=== PATIENT | female | born 1980 | race Caucasian/White ===

== ENCOUNTER 2017-01-19 09:47 | Emergency (ER) | payer OTHER ==
[2017-01-19] MEDS ORDERED: methylPREDNISolone Sodium Succinate 125 MG/2 ML SDV IM ONE (11:58)
--- NOTE | 2017-01-19 12:03 | EDM.PDOC ---
[id number] Complaint: FLU CHILLS Time Seen by Provider: 01/19/17 10:20 Source of Information: Reports: Patient History Limitations: Reports: No limitations - History of Present Illness INITIAL COMMENTS - FREE TEXT/NARRATIVE: 36-year-old female who has had an ongoing respiratory infection for the last week now worsened by nausea and vomiting and diarrhea over the past 12 hours. It started 7 days ago with a sore throat, she lost her voice and developed a cough. She feels tired, achy, and has a headache. Overnight she had persistent diarrhea and vomited several times and feels awful. Severity: moderate Associated Symptoms: Reports: cough, loss of appetite, malaise, nausea/vomiting , shortness of breath, weakness. Denies: fever/chills Generalized Pain Score (Numeric/FACES): 7 - Related Data Allergies Allergy/AdvReac Type Severity Reaction Status Date / Time No Known Allergies Allergy Verified 01/19/17 10:14 Home Meds: Home Meds Omeprazole [Prilosec] 20 mg PO DAILY 01/31/15 [History] Venlafaxine [Venlafaxine ER] 375 mg PO DAILY 01/31/15 [History] Naproxen Sodium [Aleve] 220 mg PO ASDIRECTED 12/01/15 [History] *Levothyroxine 08/04/16 [History] Past Medical History Gastrointestinal History: Reports: GERD Musculoskeletal History: Reports: Back pain, chronic, Fracture Psychiatric History: Reports: Depression, PTSD Endocrine/Metabolic History: Reports: Hypothyroidism - Infectious Disease History Infectious Disease History: Reports: C-difficile - Past Surgical History Female Surgical History: Reports: section, Hysterectomy, Tubal ligation Social & Family History - Family History Family Medical History: Noncontributory - Tobacco Use Smoking Status *Q: Former Smoker Years of Tobacco use: 15 Packs/Tins Daily: 1 Used Tobacco, but Quit: No Month Tobacco Last Used: january Second Hand Smoke Exposure: Yes - Caffeine Use Caffeine Use: Reports: Coffee Other Caffeine Use: 2 cups a day - Alcohol Use Days Per Week of Alcohol Use: 0 - Recreational Drug Use Recreational Drug Use: No ED ROS GENERAL - Review of Systems Review Of Systems: See Below Constitutional: Reports: malaise, weakness. Denies: fever HEENT: Reports: Throat pain Respiratory: Reports: Cough. Denies: Sputum Cardiovascular: Denies: Chest pain GI/Abdominal: Reports: Diarrhea, Nausea, Vomiting. Denies: Abdominal pain Musculoskeletal: Reports: muscle pain (Diffuse achiness) Skin: Denies: rash ED EXAM, GENERAL - Physical Exam Exam: See Below Exam Limited By: No limitations General Appearance: alert, no apparent distress Eye Exam: bilateral eye: EOMI (Well-hydrated) Throat/Mouth: Normal inspection Neck: No: lymphadenopathy (R), lymphadenopathy (L) Respiratory/Chest: no respiratory distress, lungs clear Cardiovascular: regular rate, rhythm Neurological: alert, oriented Psychiatric: normal affect, normal mood Skin Exam: Warm, Dry Course - Vital Signs Last Recorded V/S: Last Vital Signs Temp 98.6 F 01/19/17 12:15 Pulse 94 01/19/17 12:15 Resp 20 01/19/17 12:15 BP 148/102 H 01/19/17 12:15 Pulse Ox 97 01/19/17 12:15 - Orders/Labs/Meds Orders: Active Orders 24 hr Category Date Time Status CULTURE STREP A CONFIRMATION [RM] Routine Lab 01/19/17 10:50 Results STREP SCRN A RAPID W CULT CONF [RM] Routine Lab 01/19/17 10:50 Results Labs: Laboratory Tests 01/19/17 01/19/17 Range/Units 11:00 11:00 WBC 5.7 (4.5-11.0) K/uL RBC 4.77 (3.30-5.50) M/uL Hgb 14.3 D (12.0-15.0) g/dL Hct 42.1 (36.0-48.0) % MCV 88 (80-98) fL MCH 30 (27-31) pg MCHC 34 (32-36) % Plt Count 249 (150-400) K/uL Neut % (Auto) 68 H (36-66) % Lymph % (Auto) 17 L (24-44) % [place] % (Auto) 13 H (2-6) % Eos % (Auto) 1 L (2-4) % Baso % (Auto) 1 (0-1) % Sodium 142 (140-148) mmol/L Potassium 3.4 L (3.6-5.2) mmol/L Chloride 104 (100-108) mmol/L Carbon Dioxide 26 (21-32) mmol/L Anion Gap 15.4 H (5.0-14.0) mmol/L BUN 8 (7-18) mg/dL Creatinine 0.7 (0.6-1.0) mg/dL Est Cr Clr Drug Dosing 116.11 mL/min Estimated GFR (MDRD) > 60 (>60) Glucose 95 (74-106) mg/dL Calcium 8.6 (8.5-10.1) mg/dL Meds: Medications Discontinued Medications Generic Name Dose Route Start Last Admin Trade Name Bassem PRN Reason Stop Dose Admin Methylprednisolone Sodium Succinate 125 mg 01/19/17 11:58 01/19/17 12:08 Solu-Medrol IM 01/19/17 11:59 125 mg ONETIME ONE Administration - Re-Assessments/Exams Free Text/Narrative Re-Assessment/Exam: 01/19/17 12:01 Rapid strep, influenza antigens, CBC and CMP were obtained. Rapid strep and influenza were negative. CBC was normal. CMP was reassuring. While explaining the labs to the patient she had a persistent cough so was given 125 mg of Solu-Medrol IM to hopefully reduce the inflammatory response to the virus. I'm going to advise her to rest for the next 2 days, will give her some Zofran to use for nausea and Tessalon Perles for cough suppression. She can increase activity as tolerated. Departure - Departure Time of Disposition: 12:17 Disposition: Home, Self-Care 01 Condition: good Clinical Impression: Acute bronchitis, viral Nausea and vomiting Qualifiers: Vomiting type: unspecified Vomiting Intractability: non-intractable Qualified Code(s): R11.2 - Nausea with vomiting, unspecified Instructions: Acute Bronchitis, [id number], Nausea and Vomiting, Adult Referrals: Salma Gutierrez MD [Primary Care Provider] - Forms: ED Department Discharge Care Plan Goals: Rest, fluids, and use medications for nausea and cough as directed. Consider rechecking in 2-3 days if not improving satisfactorily, or return anytime sooner if worsening such as difficulty breathing. - My Orders Last 24 Hours: My Active Orders 01/19/17 10:50 CULTURE STREP A CONFIRMATION [RM] Routine STREP SCRN A RAPID W CULT CONF [RM] Routine - Assessment/Plan Last 24 Hours: My Active Orders 01/19/17 10:50 CULTURE STREP A CONFIRMATION [RM] Routine STREP SCRN A RAPID W CULT CONF [RM] Routine
[2017-01-19 12:16] VITALS: BP 148/102
== END 2017-01-19 12:17 | disposition home or self-care (01) ==
LOC: JP.ED 09:47
DX: J20.8 Acute bronchitis due to other specified organisms (principal); B97.89 Other viral agents as the cause of diseases classified elsewhere; R11.2 Nausea with vomiting, unspecified; F32.9 Major depressive disorder, single episode, unspecified; E03.9 Hypothyroidism, unspecified; K21.9 Gastro-esophageal reflux disease without esophagitis; Z90.710 Acquired absence of both cervix and uterus; Z98.51 Tubal ligation status; Z79.899 Other long term (current) drug therapy
CPT/HCPCS: 36415; 80048; 85025; 87081; 87430; 87804; 96372; 99285; J2930; 99283

== ENCOUNTER 2017-04-29 08:38 | Emergency (ER) | payer OTHER ==
[2017-04-29 08:51] VITALS: BP 155/116
[2017-04-29] MEDS ORDERED: Ketorolac 60 MG/2 ML SDV IM ONE (09:16)
--- NOTE | 2017-04-29 09:22 | EDM.PDOC ---
ED HPI GENERAL MEDICAL PROBLEM - General Chief Complaint: Back Pain or Injury Stated Complaint: LOW BACK PAIN Time Seen by Provider: 04/29/17 09:10 Source of Information: Reports: Patient, RN Notes Reviewed History Limitations: Reports: No Limitations - History of Present Illness INITIAL COMMENTS - FREE TEXT/NARRATIVE: 36-year-old female presents emergency department day complaint of low back pain , she has a history of chronic back pain she states probably related to her work use were she does do a lot of bending and twisting lifting. 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: Musculoskeletal History: Reports: Back Pain, Chronic, Fracture Psychiatric History: Reports: Depression, PTSD Endocrine/Metabolic History: Reports: Hypothyroidism - Infectious Disease History Infectious Disease History: Reports: Chicken Pox - Past Surgical History Female Surgical History: Reports: Section, Hysterectomy, Tubal Ligation Social & Family History - Family History Family Medical History: Noncontributory - Tobacco Use Smoking Status *Q: Current Every Day Smoker Years of Tobacco use: 15 Packs/Tins Daily: 0.5 Used Tobacco, but Quit: No Month Tobacco Last Used: january Second Hand Smoke Exposure: Yes - Caffeine Use Caffeine Use: Reports: Coffee, Tea Other Caffeine Use: 2 cups a day - Alcohol Use Days Per Week of Alcohol Use: 0 - Recreational Drug Use Recreational Drug Use: No ED ROS GENERAL - Review of Systems Review Of Systems: See Below Constitutional: Reports: No Symptoms Respiratory: Reports: No Symptoms Cardiovascular: Reports: No Symptoms GI/Abdominal: Reports: No Symptoms : Reports: No Symptoms Musculoskeletal: Reports: Back Pain Neurological: Reports: Paresthesia ED EXAM,LOWER BACK PAIN/INJURY - Physical Exam Exam: See Below Exam Limited By: No Limitations General Appearance: Alert, WD/WN, No Apparent Distress Respiratory/Chest: No Respiratory Distress Back Exam: Normal Inspection, Decreased Range of Motion, Muscle Spasm, Paraspinal Tenderness. No: CVA Tenderness (R), CVA Tenderness (L), Vertebral Tenderness DTR - Lower Extremities: 2+: Knee (R), Knee (L) Course - Vital Signs Last Recorded V/S: Last Vital Signs Temp 210.2 F H 04/29/17 08:49 Pulse 92 04/29/17 08:49 Resp 15 04/29/17 08:49 BP 155/116 H 04/29/17 08:49 Pulse Ox 99 04/29/17 08:49 - Orders/Labs/Meds Orders: Active Orders 24 hr Category Date Time Status Ketorolac [Toradol] Med 04/29/17 09:16 Once 60 mg IM ONETIME ONE Medication Orders Ketorolac Tromethamine (Toradol) 60 mg IM ONETIME ONE Stop: 04/29/17 09:17 Meds: Medications Generic Name Dose Route Start Last Admin Trade Name Bassem PRN Reason Stop Dose Admin Ketorolac Tromethamine 60 mg 04/29/17 09:16 Toradol IM 04/29/17 09:17 ONETIME ONE Departure - Departure Time of Disposition: 09:22 Disposition: Home, Self-Care 01 Condition: Good Clinical Impression: Chronic back pain Qualifiers: Back pain location: low back pain Back pain laterality: right Sciatica presence : without sciatica Qualified Code(s): M54.5 - Low back pain; G89.29 - Other chronic pain - Discharge Information Forms: ED Department Discharge Additional Instructions: Continue to use your prescribed medications, use a hydrocodone for breakthrough pain, use the Robaxin as needed for muscle relaxants, please keep your follow- up appointment with your primary care provider in 2 weeks - My Orders Last 24 Hours: My Active Orders 04/29/17 09:16 Ketorolac [Toradol] 60 mg IM ONETIME ONE - Assessment/Plan Last 24 Hours: My Active Orders 04/29/17 09:16 Ketorolac [Toradol] 60 mg IM ONETIME ONE Plan: Assessment Acuity = acute on chronic Site and laterality = exacerbation low back pain Etiology = secondary to lifting injury Manifestations = none Location of injury = Home Lab values = none Plan She was given a Toradol injection well he may be did provide some relief prescription written for 10 hydrocodone in combination with 20 Robaxin she does have follow-up with appointment with her primary care provider in 2 weeks to try alternative methods for her back pain Patient was in agreement with the plan all questions were answered, they were instructed to return to the emergency department or call for worsening symptoms. This note was dictated using [employer] voice recognition software please call with any questions.
== END 2017-04-29 09:37 | disposition home or self-care (01) ==
LOC: JP.ED 08:38
DX: G89.29 Other chronic pain (principal); M54.5 Low back pain; F43.10 Post-traumatic stress disorder, unspecified; F17.210 Nicotine dependence, cigarettes, uncomplicated; Z98.51 Tubal ligation status; Z90.710 Acquired absence of both cervix and uterus; Z79.899 Other long term (current) drug therapy
CPT/HCPCS: 96372; 99283; J1885

== ENCOUNTER 2017-08-04 07:44 | Emergency (ER) | payer OTHER ==
[2017-08-04 07:56] VITALS: BP 165/118
--- NOTE | 2017-08-04 08:09 | EDM.PDOC ---
ED HPI GENERAL MEDICAL PROBLEM - General Chief Complaint: Respiratory Problem Stated Complaint: COLD/CAN'T BREATH WELL Time Seen by Provider: 08/04/17 08:08 Source of Information: Reports: Patient History Limitations: Reports: No Limitations - History of Present Illness INITIAL COMMENTS - FREE TEXT/NARRATIVE: pt arrived with a 2 week history of marked coughing sore throat and sob. Onset: Gradual, Other ( started 2 weeks ago. 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: Musculoskeletal History: Reports: Back Pain, Chronic, Fracture Psychiatric History: Reports: Depression, PTSD Endocrine/Metabolic History: Reports: Hypothyroidism - Infectious Disease History Infectious Disease History: Reports: Chicken Pox - Past Surgical History Female Surgical History: Reports: Section, Hysterectomy, Tubal Ligation Social & Family History - Family History Family Medical History: Noncontributory - Tobacco Use Smoking Status *Q: Heavy Tobacco Smoker Years of Tobacco use: 10 Packs/Tins Daily: 0.5 Used Tobacco, but Quit: No Month Tobacco Last Used: january Second Hand Smoke Exposure: Yes - Caffeine Use Caffeine Use: Reports: Coffee Other Caffeine Use: 2 cups a day - Alcohol Use Days Per Week of Alcohol Use: 0 - Recreational Drug Use Recreational Drug Use: No ED ROS GENERAL - Review of Systems Review Of Systems: See Below Constitutional: Reports: Weakness, Decreased Appetite HEENT: Reports: Throat Pain Respiratory: Reports: Shortness of Breath, Wheezing, Cough Cardiovascular: Reports: No Symptoms Endocrine: Reports: No Symptoms GI/Abdominal: Reports: No Symptoms : Reports: No Symptoms Musculoskeletal: Reports: No Symptoms Skin: Reports: No Symptoms ED EXAM, GENERAL - Physical Exam Exam: See Below Free Text/Narrative:: pt arrived with a cough and wheezing . She has been ill for 2 weeks. She has not been running a high temp. Exam Limited By: No Limitations General Appearance: Alert, Anxious, Mild Distress Ears: Normal TMs Nose: Normal Inspection Throat/Mouth: Other ( mild redness with very little exudate. ) Head: Atraumatic Neck: Lymphadenopathy (R), Lymphadenopathy (L) Respiratory/Chest: Decreased Breath Sounds, Wheezing Cardiovascular: Regular Rate, Rhythm GI/Abdominal: Soft (Female) Exam: Deferred Rectal (Female) Exam: Deferred Extremities: Normal Inspection Neurological: Alert, Oriented, Normal Cognition Course - Vital Signs Last Recorded V/S: Last Vital Signs Temp 36.2 C 08/04/17 07:56 Pulse 90 08/04/17 07:56 Resp 18 08/04/17 07:56 BP 165/118 H 08/04/17 07:56 Pulse Ox 97 08/04/17 07:56 - Orders/Labs/Meds Orders: Active Orders 24 hr Category Date Time Status RT Aerosol Therapy [RC] ASDIRECTED Care 08/04/17 08:10 Active Chest 2V [CR] Stat Exams 08/04/17 08:07 Taken CULTURE STREP A CONFIRMATION [] Stat Lab 08/04/17 08:06 Results STREP SCRN A RAPID W CULT CONF [RM] Stat Lab 08/04/17 08:06 Results Labs: Laboratory Tests 08/04/17 Range/Units 08:06 WBC 11.4 H (4.5-11.0) K/uL RBC 5.05 (3.30-5.50) M/uL Hgb 15.8 H (12.0-15.0) g/dL Hct 46.0 (36.0-48.0) % MCV 91 (80-98) fL MCH 31 (27-31) pg MCHC 34 (32-36) % Plt Count 313 (150-400) K/uL Neut % (Auto) 83 H (36-66) % Lymph % (Auto) 11 L (24-44) % [place] % (Auto) 5 (2-6) % Eos % (Auto) 1 L (2-4) % Baso % (Auto) 0 (0-1) % Meds: Medications Discontinued Medications Generic Name Dose Route Start Last Admin Trade Name Freq PRN Reason Stop Dose Admin Albuterol 2.5 mg 08/04/17 08:10 08/04/17 08:24 Proventil Neb Soln NEB 08/04/17 08:11 2.5 mg ONETIME ONE Administration - Re-Assessments/Exams Free Text/Narrative Re-Assessment/Exam: 08/04/17 08:48 strept was neg, chest did not reveal a pneumonia, wbc is mildly elevated at 11, 400. Departure - Departure Time of Disposition: 08:48 Disposition: Home, Self-Care 01 Condition: Fair Clinical Impression: Bronchitis - Discharge Information Referrals: Salma Gutierrez MD [Primary Care Provider] - Forms: ED Department Discharge Care Plan Goals: push fluids, cool mist humidifir at the bedside, zithromax 250 2 tabs now and 1 tab daily for 6 days, albuterol inhaler 2 puffs tid, robitussin ac 2 tsp q6h prn for cough. - My Orders Last 24 Hours: My Active Orders 08/04/17 08:06 CULTURE STREP A CONFIRMATION [RM] Stat STREP SCRN A RAPID W CULT CONF [RM] Stat 08/04/17 08:07 Chest 2V [CR] Stat 08/04/17 08:10 RT Aerosol Therapy [RC] ASDIRECTED - Assessment/Plan Last 24 Hours: My Active Orders 08/04/17 08:06 CULTURE STREP A CONFIRMATION [RM] Stat STREP SCRN A RAPID W CULT CONF [RM] Stat 08/04/17 08:07 Chest 2V [CR] Stat 08/04/17 08:10 RT Aerosol Therapy [RC] ASDIRECTED
[2017-08-04] MEDS ORDERED: Albuterol 0.083% 2.5 MG/3 ML Neb Soln NEB ONE (08:10)
--- NOTE | 2017-08-04 09:03 | CR ---
Chest 2V FINDINGS: The heart and vascular structures are normal in appearance. No infiltrates or effusions are demonstrated. The skeletal structures are unremarkable. IMPRESSION: Negative exam.
== END 2017-08-04 08:58 | disposition home or self-care (01) ==
LOC: JP.ED 07:44
DX: J40 Bronchitis, not specified as acute or chronic (principal); F17.210 Nicotine dependence, cigarettes, uncomplicated; K21.9 Gastro-esophageal reflux disease without esophagitis; F32.9 Major depressive disorder, single episode, unspecified; E03.9 Hypothyroidism, unspecified; Z79.899 Other long term (current) drug therapy
CPT/HCPCS: 36415; 71020; 71020-26; 85025; 87081; 87430; 94640; 99283; 99285-25

== ENCOUNTER 2018-05-27 10:53 | Emergency (ER) | payer OTHER ==
[2018-05-27 11:12] VITALS: BP 182/106
--- NOTE | 2018-05-27 11:37 | EDM.PDOCBH ---
ED HPI GENERAL MEDICAL PROBLEM - General Chief Complaint: Behavioral/Psych Stated Complaint: DEPRESSION Time Seen by Provider: 05/27/18 11:33 Source of Information: Reports: Patient History Limitations: Reports: No Limitations - History of Present Illness INITIAL COMMENTS - FREE TEXT/NARRATIVE: Pt has been on effexor for the past 6 years. [facility] for [facility] has had trouble filling it this time. This has been a effective medication for her. 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: Musculoskeletal History: Reports: Back Pain, Chronic, Fracture Psychiatric History: Reports: Depression, PTSD Endocrine/Metabolic History: Reports: Hypothyroidism - Infectious Disease History Infectious Disease History: Reports: Chicken Pox - Past Surgical History Female Surgical History: Reports: Section, Hysterectomy, Tubal Ligation Social & Family History - Family History Family Medical History: Noncontributory - Tobacco Use Smoking Status *Q: Current Every Day Smoker Years of Tobacco use: 15 Packs/Tins Daily: 1 - Caffeine Use Caffeine Use: Reports: Coffee Other Caffeine Use: 2 cups a day - Recreational Drug Use Recreational Drug Use: No ED ROS GENERAL - Review of Systems Review Of Systems: See Below Constitutional: Reports: No Symptoms HEENT: Reports: No Symptoms Respiratory: Reports: No Symptoms Cardiovascular: Reports: No Symptoms Endocrine: Reports: No Symptoms GI/Abdominal: Reports: No Symptoms : Reports: No Symptoms Musculoskeletal: Reports: No Symptoms Skin: Reports: No Symptoms Neurological: Reports: No Symptoms Psychiatric: Reports: Agitation, Anxiety ED EXAM, BEHAVIORAL HEALTH - Physical Exam Exam: See Below Text/Narrative:: pT ARRIVED WITH A HISTORY OF BEING OUT OF HER eFFEXOR er FOR 3 DAYS. sHE IS FEELING VERY AGITATED AND NERVOUS AT THIS TIME. Exam Limited By: No Limitations General Appearance: Alert, Anxious, Mild Distress Ears: Normal TMs Nose: Normal Inspection Throat/Mouth: Normal Inspection Head: Atraumatic Neck: Normal Inspection Respiratory/Chest: No Respiratory Distress Cardiovascular: Regular Rate, Rhythm GI/Abdominal: Soft, Non-Tender (Female) Exam: Deferred Rectal (Female) Exam: Deferred Back Exam: Normal Inspection Extremities: Normal Inspection, Increased Warmth Neurological: Normal Cognition Psychiatric: Alert, Agitated COURSE, BEHAVIORAL HEALTH COMP - Course Vital Signs: Last Vital Signs Temp 36.6 C 05/27/18 11:11 Pulse 90 05/27/18 11:11 Resp 15 05/27/18 11:11 BP 182/106 H 05/27/18 11:11 Pulse Ox 99 05/27/18 11:11 Departure - Departure Time of Disposition: 11:35 Disposition: Home, Self-Care 01 Condition: Fair Clinical Impression: Has run out of medications, Depression - Discharge Information Referrals: PCP,None [Primary Care Provider] - Forms: ED Department Discharge Care Plan Goals: effexor er 75 mg--3 tabs daily. [facility] GET THE [facility]M STRAIGHTENED OUT.
== END 2018-05-27 11:42 | disposition home or self-care (01) ==
LOC: JP.ED 10:53
DX: F32.9 Major depressive disorder, single episode, unspecified (principal); Z79.899 Other long term (current) drug therapy; F17.210 Nicotine dependence, cigarettes, uncomplicated
CPT/HCPCS: 99284

== ENCOUNTER 2020-10-24 10:34 | Emergency (ER) | payer OTHER ==
[2020-10-24] MEDS ORDERED: Sodium Chloride 0.9% 10 ML Syringe FLUSH PRN (11:08)
[2020-10-24] MEDS ORDERED: LORazepam 2 MG/ML SDV IVPUSH ONE (11:09)
--- NOTE | 2020-10-24 11:13 | EDM.PDOC ---
ED HPI GENERAL MEDICAL PROBLEM - General Chief Complaint: General Stated Complaint: DIZZY AND LIGHT HEADED Time Seen by Provider: 10/24/20 11:04 Source of Information: Reports: Patient, RN Notes Reviewed History Limitations: Reports: No Limitations - History of Present Illness INITIAL COMMENTS - FREE TEXT/NARRATIVE: 40-year-old female presents emergency department with a complaint of dizziness, sudden onset this morning she has never had this before dizziness does include nausea and vomiting and difficult for her to ambulate - Related Data Allergies Allergy/AdvReac Type Severity Reaction Status Date / Time No Known Allergies Allergy Verified 10/24/20 10:44 Home Meds: Home Meds Omeprazole [Prilosec] 20 mg PO DAILY 01/31/15 [History] Venlafaxine [Venlafaxine ER] 375 mg PO DAILY 01/31/15 [History] Naproxen Sodium [Aleve] 220 mg PO ASDIRECTED 12/01/15 [History] Levothyroxine Sodium [Synthroid] 112 mcg PO DAILY 10/24/20 [History] Past Medical History Cardiovascular History: Reports: Hypertension Gastrointestinal History: Reports: GERD 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: Musculoskeletal History: Reports: Back Pain, Chronic, Fracture Psychiatric History: Reports: Depression, Panic Attack, PTSD Endocrine/Metabolic History: Reports: Hypothyroidism - Infectious Disease History Infectious Disease History: Reports: Chicken Pox - Past Surgical History Head Surgeries/Procedures: Reports: None HEENT Surgical History: Reports: None GI Surgical History: Reports: None Female Surgical History: Reports: Section, Hysterectomy, Tubal Ligation Social & Family History - Family History Family Medical History: No Pertinent Family History - Tobacco Use Tobacco Use Status *Q: Current Every Day Tobacco User Years of Tobacco use: 18 Packs/Tins Daily: 1 - Caffeine Use Caffeine Use: Reports: Coffee Other Caffeine Use: 2 cups a day - Recreational Drug Use Recreational Drug Use: No ED ROS GENERAL - Review of Systems Review Of Systems: See Below Constitutional: Reports: No Symptoms HEENT: Reports: Vertigo Respiratory: Reports: No Symptoms Cardiovascular: Reports: No Symptoms GI/Abdominal: Reports: Nausea, Vomiting Neurological: Reports: Dizziness ED EXAM, GENERAL - Physical Exam Exam: See Below Free Text/Narrative:: Head impulse test: Corrective saccades is normal when head turned to the bilateral Nystagmus: unidirectional, horizontal 2-beating nystagmus Skew deviation: grossly absent Exam Limited By: No Limitations General Appearance: Alert, Anxious, Mild Distress Eye Exam: Bilateral Eye: EOMI, Normal Inspection, PERRL Ears: Normal External Exam, Normal Canal, Hearing Grossly Normal, Normal TMs Respiratory/Chest: No Respiratory Distress, Lungs Clear, Normal Breath Sounds, No Accessory Muscle Use, Chest Non-Tender Cardiovascular: Regular Rate, Rhythm, No Murmur GI/Abdominal: Soft, Non-Tender Course - Vital Signs Last Recorded V/S: Last Vital Signs Temp 98.5 F 10/24/20 10:39 Pulse 82 10/24/20 12:46 Resp 16 10/24/20 12:46 BP 134/85 10/24/20 12:46 Pulse Ox 98 10/24/20 12:46 - Orders/Labs/Meds Orders: Active Orders 24 hr Category Date Time Status Peripheral IV Care [RC] . DIRECTED Care 10/24/20 11:09 Active Iopamidol [Isovue-370 (76%)] Med 10/24/20 11:30 Active 100 ml IV . DIRECTED Sodium Chloride 0.9% [Normal Saline] 1,000 ml Med 10/24/20 11:15 Active IV ASDIRECTED Sodium Chloride 0.9% [Normal Saline] 100 ml Med 10/24/20 11:30 Active IV ASDIRECTED Sodium Chloride 0.9% [Saline Flush] Med 10/24/20 11:08 Active 10 ml FLUSH ASDIRECTED PRN Peripheral IV Insertion Adult [OM.PC] Urgent Oth 10/24/20 11:08 Ordered Medication Orders Sodium Chloride (Normal Saline) 1,000 mls @ 500 mls/hr IV ASDIRECTED [facility] Last Admin: 10/24/20 11:59 Dose: 500 mls/hr Documented by: PREILOR Sodium Chloride (Normal Saline) 100 mls @ 3 mls/sec IV ASDIRECTED DIANE Last Admin: 10/24/20 12:36 Dose: 3 mls/sec Documented by: FIEMSAR Iopamidol (Isovue-370 (76%)) [address] [facility] Last Admin: 10/24/20 12:35 Dose: 100 ml Documented by: FIEMSAR Sodium Chloride (Saline Flush) 10 ml FLUSH ASDIRECTED PRN PRN Reason: Keep Vein Open Labs: Laboratory Tests 10/24/20 10/24/20 10/24/20 Range/Units 11:30 11:30 11:30 WBC 8.5 (4.5-11.0) K/uL RBC 4.29 (3.30-5.50) M/uL Hgb 14.6 (12.0-15.0) g/dL Hct 42.9 (36.0-48.0) % MCV 100 H (80-98) fL MCH 34 H (27-31) pg MCHC 34 (32-36) % Plt Count 286 (150-400) K/uL Neut % (Auto) 77 H (36-66) % Lymph % (Auto) 15 L (24-44) % [place] % (Auto) 6 (2-6) % Eos % (Auto) 2 (2-4) % Baso % (Auto) 1 (0-1) % PT 10.0 (9.5-12.0) sec INR 0.92 (0.80-1.20) Sodium 134 L (140-148) mmol/L Potassium 3.5 L (3.6-5.2) mmol/L Chloride 99 L (100-108) mmol/L Carbon Dioxide 26 (21-32) mmol/L Anion Gap 12.5 (5.0-14.0) mmol/L BUN 15 D (7-18) mg/dL Creatinine 0.8 (0.6-1.0) mg/dL Est Cr Clr Drug Dosing 97.69 mL/min Estimated GFR (MDRD) > 60 (>60) Glucose 107 H (74-106) mg/dL Calcium 8.8 (8.5-10.1) mg/dL Total Bilirubin 0.3 (0.2-1.0) mg/dL AST 18 (15-37) U/L ALT 45 (12-78) U/L Alkaline Phosphatase 60 (46-116) U/L Troponin I < 0.017 (0.000-0.056) ng/mL Total Protein 6.8 (6.4-8.2) g/dL Albumin 3.7 (3.4-5.0) g/dL Globulin 3.1 (2.3-3.5) g/dL Albumin/Globulin Ratio 1.2 (1.2-2.2) Meds: Medications Generic Name Dose Route Start Last Admin Trade Name Freq PRN Reason Stop Dose Admin Sodium Chloride 1,000 mls @ 500 mls/hr 10/24/20 11:15 10/24/20 11:59 Normal Saline IV 500 mls/hr ASDIRECTED DIANE Administration Sodium Chloride 100 mls @ 3 mls/sec 10/24/20 11:30 10/24/20 12:36 Normal Saline IV 3 mls/sec ASDIRECTED DIANE Administration Iopamidol 100 ml 10/24/20 11:30 10/24/20 12:35 Isovue-370 (76%) IV 100 ml . DIRECTED DIANE Administration Sodium Chloride 10 ml 10/24/20 11:08 Saline Flush FLUSH ASDIRECTED PRN Keep Vein Open Discontinued Medications Generic Name Dose Route Start Last Admin Trade Name Bassem GARCIAN Reason Stop Dose Admin Lorazepam 1 mg 10/24/20 11:09 10/24/20 12:00 Ativan IVPUSH 10/24/20 11:10 1 mg ONETIME ONE Administration Meclizine HCl 25 mg 10/24/20 13:22 10/24/20 13:27 Antivert PO 10/24/20 13:23 25 mg ONETIME ONE Administration Sodium Chloride 10 ml 10/24/20 11:30 10/24/20 12:36 Saline Flush FLUSH 10/24/20 11:31 10 ml ONETIME ONE Administration - Re-Assessments/Exams Free Text/Narrative Re-Assessment/Exam: 10/24/20 13:23 Did have some improvement with the Ativan provided, I did review lab work CTA CT results with her CTA is not conclusive for CVA. I did ambulate with her around the emergency department which she had no difficulty feels her symptoms have improved since this morning Departure - Departure Time of Disposition: 14:00 Disposition: Home, Self-Care 01 Condition: Fair Clinical Impression: Dizzy - Discharge Information Instructions: Dizziness, [id number] Referrals: PCP,None [Primary Care Provider] - Forms: ED Department Discharge Additional Instructions: Try the meclizine 1 tablet 3 times a day as needed for dizzy symptoms follow-up primary care 3 to 5 days if not better call return to the emergency department worsening symptoms Sepsis Event Note (ED) - Evaluation Sepsis Screening Result: No Definite Risk - Focused Exam Vital Signs: Vital Signs Temp Pulse Resp BP Pulse Ox 10/24/20 12:46 82 16 134/85 98 10/24/20 10:39 98.5 F 99 32 H 162/102 H 98 - My Orders Last 24 Hours: My Active Orders 10/24/20 11:08 Sodium Chloride 0.9% [Saline Flush] 10 ml FLUSH ASDIRECTED PRN Peripheral IV Insertion Adult [OM.PC] Urgent 10/24/20 11:09 Peripheral IV Care [RC] . DIRECTED 10/24/20 11:15 Sodium Chloride 0.9% [Normal Saline] 1,000 ml IV ASDIRECTED 10/24/20 11:30 Iopamidol [Isovue-370 (76%)] 100 ml IV . DIRECTED Sodium Chloride 0.9% [Normal Saline] 100 ml IV ASDIRECTED - Assessment/Plan Last 24 Hours: My Active Orders 10/24/20 11:08 Sodium Chloride 0.9% [Saline Flush] 10 ml FLUSH ASDIRECTED PRN Peripheral IV Insertion Adult [OM.PC] Urgent 10/24/20 11:09 Peripheral IV Care [RC] . DIRECTED 10/24/20 11:15 Sodium Chloride 0.9% [Normal Saline] 1,000 ml IV ASDIRECTED 10/24/20 11:30 Iopamidol [Isovue-370 (76%)] 100 ml IV . DIRECTED Sodium Chloride 0.9% [Normal Saline] 100 ml IV ASDIRECTED Plan: Assessment Acuity = acute Site and laterality = dizzy Etiology = unknown Manifestations = none Location of injury = Home Lab values = CBC CMP unremarkable CT of the head shows no acute process CTA does show some questionable findings difficult to interpret however she had improvement with meclizine therefore I think this is more dizzy type phenomenon rather than posterior circulation stroke Plan I did review lab work CT scan results with her she is to follow[facility] with [facility] for further evaluation 3 to 5 days This note was dictated using [employer] voice recognition software please call with any questions on syntax or grammar.
[2020-10-24] MEDS ORDERED: Sodium Chloride 0.9% 1,000 ML IV SCH (11:15)
[2020-10-24] MEDS ORDERED: Sodium Chloride 0.9% 10 ML Syringe FLUSH ONE (11:30)
[2020-10-24] MEDS ORDERED: Iopamidol 755 Mg/ML 100 ML Bottle IV SCH (11:30)
[2020-10-24] MEDS ORDERED: Sodium Chloride 0.9% 100 ML IV SCH (11:30)
[2020-10-24 12:46] VITALS: BP 134/85; PULSE 82
--- NOTE | 2020-10-24 12:50 | CT ---
Head wo Cont CLINICAL HISTORY: Dizziness COMPARISON: None TECHNIQUE: Transverse scans were obtained from the base of the skull through the vertex without IV contrast on a multislice, multidetector CT scanner. Auto dosage reduction and iterative reconstruction techniques employed. FINDINGS: No focal abnormal parenchymal density is identified. There is no mass effect, hemorrhage, or extraaxial collection. The basal cisterns and sulci over the convexities are normal. The ventricles are normal for age. IMPRESSION: No acute intracranial process
--- NOTE | 2020-10-24 13:03 | CT ---
Ang Head CLINICAL HISTORY: Nausea and vomiting, difficulty walking. COMPARISON: None TECHNIQUE: Multiple volume rendered and MIP 3D reconstructions were generated from source images obtained on a spiral scanner before and after intravenous iodinated contrast enhancement Auto dosage reduction and iterative reconstruction techniques employed. FINDINGS: Internal carotid arteries: Have a normal course and contour Anterior cerebral arteries: There is a mild focal stenosis at the origin of the right anterior cerebral artery. The anterior communicating artery is patent Middle cerebral arteries: There is a mild focal stenosis in the proximal anterior branch Posterior cerebral arteries: There is some mild irregularity of the right posterior cerebral artery without significant focal stenosis Vertebral/basilar arteries: Normal course and contour IMPRESSION: Mild focal narrowing at the origin of the right cerebral artery and the proximal portion of the anterior branch of the right middle cerebral artery.
[2020-10-24] MEDS ORDERED: Meclizine 25 MG Tab PO ONE (13:22)
== END 2020-10-24 14:17 | disposition home or self-care (01) ==
LOC: JP.ED 10:34
DX: R42 Dizziness and giddiness (principal); I10 Essential (primary) hypertension; K21.9 Gastro-esophageal reflux disease without esophagitis; F32.9 Major depressive disorder, single episode, unspecified; E03.9 Hypothyroidism, unspecified; F17.210 Nicotine dependence, cigarettes, uncomplicated; Z79.899 Other long term (current) drug therapy
CPT/HCPCS: 36415; 70450; 70496; 80053; 84484; 85025; 85610; 96374; 99284; A9270; J2060; J7030; Q9967

== ENCOUNTER 2021-02-08 08:16 | Emergency (ER) | payer OTHER ==
[2021-02-08 08:30] VITALS: BP 137/85; PULSE 78
[2021-02-08] MEDS ORDERED: Bacitracin Oint 1 GM U/D Packet TOP ONE (08:46)
--- NOTE | 2021-02-08 09:01 | EDM.PDOC ---
ED HPI GENERAL MEDICAL PROBLEM - General Chief Complaint: ENT Problem Stated Complaint: PAIN AND DRAINAGE IN LT EAR Time Seen by Provider: 02/08/21 08:35 Source of Information: Reports: Patient History Limitations: Reports: No Limitations - History of Present Illness INITIAL COMMENTS - FREE TEXT/NARRATIVE: 40-year-old female with a cyst that has been growing in the left ear canal for the last couple of years, has gotten sporadically big over the last few months. She saw dermatology but they referred her to ENT which is taking months. Over the past 4 days it is becoming tender and this morning drained a little bit. No fevers or chills no other complaints. Onset: Gradual Duration: Chronic Location: Reports: Other (Left ear canal) left ear Pain Score (Numeric/FACES): 6 - Related Data Allergies Allergy/AdvReac Type Severity Reaction Status Date / Time No Known Allergies Allergy Verified 02/08/21 08:34 Home Meds: Home Meds Omeprazole [Prilosec] 20 mg PO DAILY 01/31/15 [History] Venlafaxine [Venlafaxine ER] 375 mg PO DAILY 01/31/15 [History] Naproxen Sodium [Aleve] 220 mg PO ASDIRECTED 12/01/15 [History] Levothyroxine Sodium [Synthroid] 112 mcg PO DAILY 10/24/20 [History] Past Medical History - Past Health History Medical/Surgical History: Denies Medical/Surgical History HEENT History: Reports: None Cardiovascular History: Reports: Hypertension Respiratory History: Reports: None Gastrointestinal History: Reports: GERD Genitourinary History: Reports: 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: Musculoskeletal History: Reports: Back Pain, Chronic, Fracture Neurological History: Reports: None Psychiatric History: Reports: Depression, Panic Attack, PTSD Endocrine/Metabolic History: Reports: Hypothyroidism Hematologic History: Reports: None Immunologic History: Reports: None Oncologic (Cancer) History: Reports: None Dermatologic History: Reports: None - Infectious Disease History Infectious Disease History: Reports: Chicken Pox - Past Surgical History Head Surgeries/Procedures: Reports: None HEENT Surgical History: Reports: None GI Surgical History: Reports: None Female Surgical History: Reports: Section, Hysterectomy, Tubal Ligation Social & Family History - Family History Family Medical History: No Pertinent Family History - Tobacco Use Tobacco Use Status *Q: Current Every Day Tobacco User Years of Tobacco use: 20 Packs/Tins Daily: 0.5 - Caffeine Use Caffeine Use: Reports: Coffee Other Caffeine Use: 2 cups a day - Recreational Drug Use Recreational Drug Use: No ED ROS ENT - Review of Systems Review Of Systems: See Below Constitutional: Denies: Fever, Chills HEENT: Reports: Ear Pain (Left side). Denies: Hearing Loss Respiratory: Denies: Shortness of Breath, Cough Cardiovascular: Denies: Chest Pain GI/Abdominal: Denies: Nausea, Vomiting : Reports: No Symptoms Neurological: Reports: No Symptoms ED EXAM, ENT - Physical Exam Exam: See Below Exam Limited By: No Limitations General Appearance: Alert, No Apparent Distress Ears: Other (Left TM is normal, there is a 1 cm somewhat tender fluctuant cyst at the opening of the ear canal at 6:00. It is not significantly erythematous and I do not see active draining anteriorly. TMs normal.) Respiratory/Chest: No Respiratory Distress Cardiovascular: Regular Rate, Rhythm Neurological: Alert, Oriented Psychiatric: Normal Affect, Normal Mood Course - Vital Signs Last Recorded V/S: Last Vital Signs Temp 97.3 F 02/08/21 08:29 Pulse 78 02/08/21 08:29 Resp 16 02/08/21 08:29 BP 137/85 02/08/21 08:29 Pulse Ox 97 02/08/21 08:29 - Orders/Labs/Meds Orders: Active Orders 24 hr Category Date Time Status CULTURE WOUND + SMEAR [RM] Stat Lab 02/08/21 09:05 Received Meds: Medications Discontinued Medications Generic Name Dose Route Start Last Admin Trade Name Bassem PRN Reason Stop Dose Admin Bacitracin 1 dose 02/08/21 08:46 02/08/21 09:02 Bacitracin Oint 1 Gm U/D Packet TOP 02/08/21 08:47 1 dose ONETIME ONE Administration Lidocaine HCl 5 ml 02/08/21 08:46 02/08/21 09:02 Lidocaine 1% 5 Ml Sdv INJECT 02/08/21 08:47 5 ml ONETIME ONE Administration - Re-Assessments/Exams Free Text/Narrative Re-Assessment/Exam: 02/08/21 09:05 This cyst was covered with Betadine, infiltrated with a small amount of 1% lidocaine for anesthesia, and a small incision was made with a sterile 11 scalpel. The initial sebaceous material expelled was cultured. It is more solid or cottage cheeselike then it is purulent. It was expelled from the cyst area is much as possible. Encouraged the patient to continue to keep the area clean with moist compresses, and she was placed on Cortisporin eardrops. Departure - Departure Time of Disposition: :20 Disposition: Home, Self-Care 01 Clinical Impression: Abscess of left ear canal - Discharge Information Instructions: Skin Abscess, [id number] Referrals: PCP,None [Primary Care Provider] - Forms: ED Department Discharge Care Plan Goals: Keep the area clean with warm moist compresses for the next couple of days and use eardrops as prescribed. Return if worsening such as fever or increased area of redness or warmth. Apply 3 drops of antibiotic medication in your ear 3 times a day for at least 5 days. Sepsis Event Note (ED) - Evaluation Sepsis Screening Result: No Definite Risk - Focused Exam Vital Signs: Vital Signs Temp Pulse Resp BP Pulse Ox 02/08/21 08:29 97.3 F 78 16 137/85 97 - My Orders Last 24 Hours: My Active Orders 02/08/21 09:05 CULTURE WOUND + SMEAR [RM] Stat - Assessment/Plan Last 24 Hours: My Active Orders 02/08/21 09:05 CULTURE WOUND + SMEAR [RM] Stat
== END 2021-02-08 09:38 | disposition home or self-care (01) ==
LOC: JP.ED 08:16
DX: H66.42 Suppurative otitis media, unspecified, left ear (principal); I10 Essential (primary) hypertension; K21.9 Gastro-esophageal reflux disease without esophagitis; E03.9 Hypothyroidism, unspecified; Z79.899 Other long term (current) drug therapy; Z72.0 Tobacco use
CPT/HCPCS: 10060; 69000; 87070; 87077; 87186; 87205; 99283; 99283-25

== ENCOUNTER 2023-02-26 18:06 | Emergency (ER) | payer OTHER ==
[2023-02-26 19:40] VITALS: BP 135/91; PULSE 81
== END 2023-02-26 20:56 | disposition home or self-care (01) ==
LOC: JP.ED 18:06
DX: M54.50 Low back pain, unspecified (principal); G89.29 Other chronic pain; M62.830 Muscle spasm of back; I10 Essential (primary) hypertension; K21.9 Gastro-esophageal reflux disease without esophagitis; E03.9 Hypothyroidism, unspecified; Z79.899 Other long term (current) drug therapy
CPT/HCPCS: 99283

== ENCOUNTER 2023-03-15 08:25 | Emergency (ER) | payer OTHER ==
[2023-03-15 08:49] VITALS: BP 152/106; PULSE 111
[2023-03-15] MEDS ORDERED: Acetaminophen/HYDROcodone 325-10 MG Tab PO ONE (09:14)
[2023-03-15] MEDS ORDERED: Cyclobenzaprine 10 MG Tab PO ONE (09:15)
[2023-03-15] MEDS ORDERED: HYDROmorphone 1 MG/ML Syringe IM ONE (09:15)
== END 2023-03-15 10:01 | disposition home or self-care (01) ==
LOC: JP.ED 08:25
DX: M54.16 Radiculopathy, lumbar region (principal); I10 Essential (primary) hypertension; K21.9 Gastro-esophageal reflux disease without esophagitis; E03.9 Hypothyroidism, unspecified; Z79.899 Other long term (current) drug therapy; Z98.890 Other specified postprocedural states
CPT/HCPCS: 96372; 99283; A9270; J1170

== ENCOUNTER 2024-11-28 17:50 | Emergency (ER) | payer OTHER ==
[2024-11-28] MEDS ORDERED: Naloxone 0.4 MG/ML SDV IVPUSH PRN (18:18)
[2024-11-28 18:27] LABS: BASOPHILS ABSOLUTE AUTO 0.07 K/uL (0.00-0.10); BASOPHILS PERCENT AUTO 0.5 % (0.1-1.3); EOSINOPHILS PERCENT AUTO 1.3 % (0.0-5.4); HEMATOCRIT 41.2 % (34.3-46.0); HEMOGLOBIN 14.4 g/dL (11.2-15.5); IMMATURE GRAN ABSOLUTE AUTO 0.07 K/uL (0.00-0.23); IMMATURE GRAN PERCENT AUTO 0.5 % (0.0-0.7); LYMPHOCYTES ABSOLUTE AUTO 1.34 K/uL (0.8-3.3); LYMPHOCYTES PERCENT AUTO 8.8 % (11.4-47.7); MEAN CORPUSCULAR HEMOGLOBIN 32.4 pg (31.6-35.5); MEAN CORPUSCULAR VOLUME 92.6 fL (81.4-99.0); MONOCYTES ABSOLUTE AUTO 0.57 K/uL (0.20-0.90); MONOCYTES PERCENT AUTO 3.8 % (3.3-12.6); NEUTROPHILS PERCENT AUTO 85.1 % (40.0-78.1); PLATELET COUNT,PLT 364 K/uL (130-375); RED BLOOD CELL COUNT 4.45 M/uL (3.77-5.24); WHITE BLOOD CELL COUNT,WBC 15.2 K/uL (3.2-11.0)
[2024-11-28 18:45] LABS: BLOOD UREA NITROGEN,BUN 12 mg/dL (7-18); CALCIUM 9.5 mg/dL (8.5-10.1); CARBON DIOXIDE,CO2 24 mmol/L (21-32); CHLORIDE,CL 103 mmol/L (100-108); CREATININE 0.8 mg/dL (0.6-1.0); EST CRCL DRUG DOSING (CG) 97.04 mL/min; ESTIMATED GFR 93 mL/min (>60); GLUCOSE RANDOM 104 mg/dL (74-106); POTASSIUM,K 3.5 mmol/L (3.6-5.2); SODIUM,NA 138 mmol/L (140-148)
[2024-11-28 18:49] LABS: ANION GAP 14.5 mmol/L (5.0-14.0); C-REACTIVE PROTEIN < 0.50 mg/dL (<0.50)
[2024-11-28 18:52] LABS: LACTIC ACID 1.1 mmol/L (0.4-2.0)
[2024-11-28] MEDS: Sodium Chloride 0.9% 1,000 ML IV SCH (18:57)
[2024-11-28] MEDS: HYDROmorphone 0.5 MG/0.5 ML Syringe IVPUSH ONE (18:57)
[2024-11-28] MEDS: Ondansetron 4 MG/2 ML SDV IVPUSH ONE (19:07)
[2024-11-28 20:07] LABS: AMPHETAMINES SCREEN, URINE NEGATIVE (NEGATIVE); BARBITURATE SCREEN,URINE NEGATIVE (NEGATIVE); BENZODIAZEPINES SCREEN,URINE NEGATIVE (NEGATIVE); METHADONE SCREEN, URINE NEGATIVE (NEGATIVE); METHAMPHETAMINES SCREEN, URINE NEGATIVE (NEGATIVE); OXYCODONE SCREEN,URINE NEGATIVE (NEGATIVE); PROPOXYPHENE SCREEN,URINE NEGATIVE (NEGATIVE); THC SCREEN,URINE 50 NG/ML PRESUMPTIVE POSITIVE (NEGATIVE)
[2024-11-28 21:10] VITALS: BP 143/93; PULSE 71
== END 2024-11-28 21:00 | disposition home or self-care (01) ==
LOC: JP.ED 17:50
DX: R56.9 Unspecified convulsions (principal); I10 Essential (primary) hypertension; K21.9 Gastro-esophageal reflux disease without esophagitis; E03.9 Hypothyroidism, unspecified; F17.210 Nicotine dependence, cigarettes, uncomplicated; Z79.890 Hormone replacement therapy; Z79.899 Other long term (current) drug therapy
CPT/HCPCS: 36415; 70450; 80048; 80305; 80307; 83605; 85025; 86140; 96361; 96374; 96375; 99285; J2405; J7030

== ENCOUNTER 2025-01-24 16:50 | Emergency (ER) | payer OTHER ==
[2025-01-24 17:13] LABS: BASOPHILS ABSOLUTE AUTO 0.08 K/uL (0.00-0.10); BASOPHILS PERCENT AUTO 0.5 % (0.1-1.3); EOSINOPHILS PERCENT AUTO 1.3 % (0.0-5.4); HEMATOCRIT 42.8 % (34.3-46.0); HEMOGLOBIN 14.7 g/dL (11.2-15.5); IMMATURE GRAN PERCENT AUTO 0.6 % (0.0-0.7); LYMPHOCYTES ABSOLUTE AUTO 1.17 K/uL (0.8-3.3); LYMPHOCYTES PERCENT AUTO 7.5 % (11.4-47.7); MEAN CORPUSCULAR HEMOGLOBIN 31.6 pg (31.6-35.5); MEAN CORPUSCULAR HGB CONC 34.3 g/dL (31.6-35.5); MONOCYTES ABSOLUTE AUTO 0.44 K/uL (0.20-0.90); MONOCYTES PERCENT AUTO 2.8 % (3.3-12.6); NEUTROPHILS ABSOLUTE AUTO 13.53 K/uL (1.0-7.6); NEUTROPHILS PERCENT AUTO 87.3 % (40.0-78.1); PLATELET COUNT,PLT 369 K/uL (130-375); RED BLOOD CELL COUNT 4.65 M/uL (3.77-5.24); WHITE BLOOD CELL COUNT,WBC 15.5 K/uL (3.2-11.0)
[2025-01-24] MEDS: levETIRAcetam in NaCl (iso-os) 1,000 MG in Premix Bag 1 BAG IV ONE (17:29)
[2025-01-24] MEDS: Sodium Chloride 0.9% 1,000 ML IV ONE (17:29)
[2025-01-24] MEDS: Ondansetron 4 MG/2 ML SDV IVPUSH ONE (17:29)
[2025-01-24 17:34] LABS: ALANINE AMINOTRANSFERASE,ALT 58 U/L (12-78); ALBUMIN 3.8 g/dL (3.4-5.0); ALKALINE PHOSPHATASE 69 U/L (46-116); ASPARTATE AMNIOTRANSFERASE,AST 28 U/L (15-37); BILIRUBIN TOTAL 0.3 mg/dL (0.2-1.0); BLOOD UREA NITROGEN,BUN 11 mg/dL (7-18); CALCIUM 9.9 mg/dL (8.5-10.1); CARBON DIOXIDE,CO2 23 mmol/L (21-32); CHLORIDE,CL 100 mmol/L (100-108); CREATININE 0.9 mg/dL (0.6-1.0); EST CRCL DRUG DOSING (CG) 83.36 mL/min; ESTIMATED GFR 81 mL/min (>60); GLUCOSE RANDOM 127 mg/dL (74-106); POTASSIUM,K 3.4 mmol/L (3.6-5.2); PROTEIN TOTAL,TP 7.7 g/dL (6.4-8.2); SODIUM,NA 139 mmol/L (140-148)
[2025-01-24 17:35] LABS: ANION GAP 19.4 mmol/L (5.0-14.0)
[2025-01-24 17:39] VITALS: BP 124/80; PULSE 82
[2025-01-24] MEDS: Acetaminophen 325 MG Tab PO ONE (18:44)
== END 2025-01-24 18:57 | disposition home or self-care (01) ==
LOC: JP.ED 16:50
DX: R56.9 Unspecified convulsions (principal); E03.9 Hypothyroidism, unspecified; I10 Essential (primary) hypertension; K21.9 Gastro-esophageal reflux disease without esophagitis; Z79.890 Hormone replacement therapy; Z79.899 Other long term (current) drug therapy
CPT/HCPCS: 36415; 70450; 70450-26; 80053; 80307; 83605; 84443; 84484; 85025; 93005; 93010; 96361; 96374; 96375; 99284; 99285-25; A9270-GY; J1953; J2405; J7030